=== PATIENT | female | born 1945 | race Hispanic/Latino ===

== ENCOUNTER 2019-09-08 15:41 | Observation (INO) | payer OTHER, MEDICARE ==
[~2019-09-08] VITALS: Ht 154.9 cm; Wt 78.1 kg
[2019-09-08 16:28] LABS: BASOPHILS % (AUTO) 1.4 % (0.0-5.0); EOSINOPHILS % (AUTO) 4.3 % (0.0-8.0); HEMATOCRIT 36.2 % (36-48); LYMPHOCYTES % (AUTO) 31.1 % (21.0-51.0); MEAN CORPUSCULAR HEMOGLOBIN 29.8 pg (27.0-33.0); MEAN CORPUSCULAR HGB CONC 32.9 g/dL (32.0-36.0); MEAN CORPUSCULAR VOLUME 90.7 fL (79-99); MONOCYTES % (AUTO) 8.2 % (3.0-13.0); NEUTROPHILS % (AUTO) 54.8 % (40.0-77.0); PLATELET COUNT (AUTO) 179 K/uL (130-400); RED BLOOD CELL COUNT(AUTO) 3.99 MIL/uL (4.00-5.50); RED CELL DISTRIBUTION WIDTH 12.9 % (11.0-15.5); WHITE BLOOD COUNT (AUTO) 5.8 K/uL (4.8-10.8)
[2019-09-08] MEDS ORDERED: ONDANSETRON HCL 4 MG/2 ML VIAL ONE ×2 (16:38→16:51)
[2019-09-08] MEDS ORDERED: MORPHINE SULFATE 4 MG/1ML SYG ONE ×2 (16:39→16:52)
[2019-09-08] MEDS ORDERED: ASPIRIN 325 MG TABLET ONE (16:39)
[2019-09-08 16:45] LABS: INR 1.03 (0.85-1.15); PARTIAL THROMBOPLASTIN TIME 25.2 SEC (26.3-35.5); PROTHROMBIN TIME 10.8 SEC (9.6-11.6)
[2019-09-08 16:48] LABS: CREATININE 1.1 mg/dL (0.5-1.5); POTASSIUM 3.8 mmol/L (3.5-5.1)
[2019-09-08 16:50] LABS: ALBUMIN 3.4 g/dL (3.5-5.0); BILIRUBIN,TOTAL 0.4 mg/dL (0.2-1.0); TOTAL PROTEIN, SERUM 6.9 g/dL (6.0-8.3)
[2019-09-08] MEDS ORDERED: ASPIRIN 81MG TAB.CHEW ONE (16:51)
[2019-09-08 21:08] VITALS: BP 125/65
[2019-09-09 00:16] VITALS: BP 135/62
[2019-09-09] MEDS ORDERED: DEXTROSE 50%-WATER 50 ML DISP.SYRIN IV PRN (01:00)
[2019-09-09] MEDS ORDERED: GLUCAGON 1MG KIT 1 MG ML IM PRN (01:00)
[2019-09-09] MEDS ORDERED: SODIUM CHLORIDE 0.9% 1000ML 1,000 ML IV SCH (01:00)
[2019-09-09] MEDS ORDERED: ONDANSETRON HCL 4 MG/2 ML VIAL IVP PRN (01:15)
[2019-09-09] MEDS ORDERED: MORPHINE SULFATE 2 MG/ML 1ML SYG IM PRN (01:15)
[2019-09-09] MEDS ORDERED: AMLO5TAB9 PO (01:26)
[2019-09-09] MEDS ORDERED: SIMV10TA97 PO (01:26)
[2019-09-09] MEDS ORDERED: LOSA100T58 PO (01:26)
[2019-09-09] MEDS ORDERED: ISOS20TA7 PO (01:26)
[2019-09-09] MEDS ORDERED: CITA-107 PO (01:26)
[2019-09-09] MEDS ORDERED: MEMA10TA55 PO (01:26)
[2019-09-09] MEDS ORDERED: DONE10TA43 PO (01:26)
[2019-09-09 04:16] VITALS: BP 136/78
[2019-09-09] MEDS: INSULIN HUMULIN R 100 UNIT/ML 3ML SQ SCH ×2 (06:47→11:30)
[2019-09-09] MEDS ORDERED: ASPI-555 PO (06:48)
[2019-09-09 07:30] VITALS: BP 137/71
[2019-09-09] MEDS ORDERED: AMLODIPINE BESYLATE 5 MG TAB PO SCH (09:00)
[2019-09-09] MEDS ORDERED: MEMANTINE HCL 5 MG TABLET PO SCH (09:00)
[2019-09-09] MEDS ORDERED: LOSARTAN 100 MG TABLET PO SCH (09:00)
[2019-09-09] MEDS ORDERED: ASPIRIN 325MG EC TAB 325 MG TABLET.DR PO SCH (09:00)
[2019-09-09 11:00] VITALS: BP 129/59
[2019-09-09] MEDS ORDERED: FERR325T22 PO (12:07)
[2019-09-09] MEDS ORDERED: FOLI0.4T2 PO (12:07)
[2019-09-09] MEDS ORDERED: PANT40TA25 PO (12:07)
[2019-09-09] MEDS ORDERED: LIDOCAINE HCL 2% VISCOUS 30 ML, MAG HYDROX/AL HYDROX/SIMETH 30 ML, BELLADONNA-PHENOBARB... PO SCH ×3 (12:15)
[2019-09-09] MEDS ORDERED: COMPOUND PO MISCELLANEOUS 1 EACH MISC MISC PRN (12:30)
[2019-09-09] MEDS ORDERED: LIDOCAINE HCL 2% VISCOUS 30 ML, MAG HYDROX/AL HYDROX/SIMETH 30 ML, DICYCLOMINE HCL 20 MG PO SCH ×3 (12:30)
[2019-09-09] MEDS ORDERED: DONEPEZIL HCL 5 MG TAB PO SCH (21:00)
[2019-09-09] MEDS ORDERED: CITALOPRAM 20 MG TABLET PO SCH (21:00)
[2019-09-09] MEDS ORDERED: ISOSORBIDE MONONITRATE 20 MG TABLET PO SCH (21:00)
[2019-09-09] MEDS ORDERED: ATORVASTATIN CALCIUM 40 MG TABLET PO SCH (21:00)
[2019-09-10] MEDS ORDERED: ASPIRIN 81 MG EC TAB PO SCH (09:00)
== END 2019-09-09 16:25 | disposition home or self-care (01) ==
LOC: EDH 15:41 → EDHIP 18:45 → 4DH 21:00
PROVIDERS: ADMIT Internal Medicine; ATTEND Internal Medicine
DX: R07.89 Other chest pain (principal); I12.9 Hypertensive chronic kidney disease with stage 1 through stage 4 chronic kidney disease, or unspecified chronic kidney disease; N18.9 Chronic kidney disease, unspecified; N17.9 Acute kidney failure, unspecified; R00.1 Bradycardia, unspecified; E78.5 Hyperlipidemia, unspecified; E66.9 Obesity, unspecified; K57.90 Diverticulosis of intestine, part unspecified, without perforation or abscess without bleeding; M47.9 Spondylosis, unspecified; I70.0 Atherosclerosis of aorta; F41.9 Anxiety disorder, unspecified; I20.9 Angina pectoris, unspecified; E44.1 Mild protein-calorie malnutrition; F03.90 Unspecified dementia, unspecified severity, without behavioral disturbance, psychotic disturbance, mood disturbance, and anxiety; Z90.49 Acquired absence of other specified parts of digestive tract; Z79.82 Long term (current) use of aspirin; Z79.899 Other long term (current) drug therapy; Z68.35 Body mass index [BMI] 35.0-35.9, adult
CPT/HCPCS: 36415; 71045; 80053; 82550; 82948 ×2; 84484 ×3; 85025; 85610; 85730; 93005 ×3; 99284; G0378 ×7; J2270; J2405

== ENCOUNTER 2021-12-09 21:54 | Emergency (ER) | payer OTHER, MEDICARE ==
[~2021-12-09 21:54] MED LIST: AMLO-257 PO; ASPI-556 PO; CITA-107 PO; DONE10TA43 PO; FERR325T22 PO; FOLI0.4T6 PO; ISOS20TA85 PO; LOSA100T58 PO; MEMA10TA55 PO; PANT40TA55 PO; SIMV10TA97 PO
[2021-12-09] MEDS ORDERED: CITALOPRAM (23:43)
[2021-12-09] MEDS ORDERED: BUSP5TAB3 PO (23:48)
[2021-12-09] MEDS ORDERED: ATOR10TA69 PO (23:48)
[2021-12-10 00:49] LABS: BASOPHILS % (AUTO) 0.6 % (0.0-5.0); EOSINOPHILS % (AUTO) 0.4 % (0.0-8.0); HEMATOCRIT 39.4 % (36-48); LYMPHOCYTES % (AUTO) 11.2 % (21.0-51.0); MEAN CORPUSCULAR HGB CONC 32.2 g/dL (32.0-36.0); MEAN CORPUSCULAR VOLUME 92.9 fL (79-99); MONOCYTES % (AUTO) 11.6 % (3.0-13.0); NEUTROPHILS % (AUTO) 75.9 % (40.0-77.0); PLATELET COUNT (AUTO) 156 K/uL (130-400); RED BLOOD CELL COUNT(AUTO) 4.24 MIL/uL (4.00-5.50); RED CELL DISTRIBUTION WIDTH 12.9 % (11.0-15.5)
[2021-12-10 01:00] LABS: POTASSIUM 3.2 mmol/L (3.5-5.1)
[2021-12-10 01:04] LABS: ALBUMIN 3.7 g/dL (3.5-5.0); BILIRUBIN,TOTAL 0.6 mg/dL (0.2-1.0); MAGNESIUM 1.9 mg/dL (1.80-2.40); TOTAL PROTEIN, SERUM 7.1 g/dL (6.0-8.3)
[2021-12-10 01:39] LABS: APPEARANCE,URINE CLEAR (CLEAR); BILIRUBIN,URINE SMALL (NEGATIVE); COLOR,URINE YELLOW (YELLOW); GLUCOSE, URINE (UA) NEGATIVE (NEGATIVE); KETONES,URINE 15 mg/dL (NEGATIVE); LEUKOCYTE ESTERASE ,URINE NEGATIVE (NEGATIVE); NITRATE,URINE POSITIVE (NEGATIVE); OCCULT BLOOD,URINE NEGATIVE (NEGATIVE); PROTEIN,URINE TRACE mg/dL (NEGATIVE); UROBILINOGEN,URINE 0.2 mg/dL (0.2-1.0)
[2021-12-10 01:46] LABS: BACTERIA,URINE Rare /HPF (None Seen); RBC,URINE None Seen /HPF (0-1)
[2021-12-10 01:47] LABS: MUCUS,URINE Few LPF (None Seen); SQUAMOUS EPITHELIAL CELL,UR Few /HPF (0-2)
[2021-12-10] MEDS ORDERED: NITROFURANTOIN MONOHYD/M-CRYST 100 MG CAPSULE PO ONE (02:30)
[2021-12-10] MEDS ORDERED: MACR100 PO (02:49)
[2021-12-10 02:57] VITALS: BP 132/74
== END 2021-12-10 03:01 | disposition home or self-care (01) ==
LOC: EDH 21:54
DX: N39.0 Urinary tract infection, site not specified (principal); M47.816 Spondylosis without myelopathy or radiculopathy, lumbar region; E11.9 Type 2 diabetes mellitus without complications; Z79.899 Other long term (current) drug therapy; Z79.82 Long term (current) use of aspirin
CPT/HCPCS: 36415; 72131; 80053; 81001; 82550; 83735; 84484; 85025; 87088; 93005

== ENCOUNTER 2023-03-05 08:12 | Emergency (ER) | payer OTHER, MEDICARE ==
[~2023-03-05] VITALS: Ht 160 cm; Wt 72.6 kg
[~2023-03-05 08:12] MED LIST changes: +ATOR10TA69 PO; +BUSP5TAB3 PO; +CITALOPRAM; -LOSA100T58 PO; +LOSA100T59 PO; +MACR100 PO
[2023-03-05 08:15] VITALS: BP 145/79
[2023-03-05 08:58] LABS: BASOPHILS % (AUTO) 0.6 % (0.0-5.0); EOSINOPHILS % (AUTO) 0.8 % (0.0-8.0); HEMATOCRIT 38.7 % (36-48); LYMPHOCYTES % (AUTO) 13.2 % (21.0-51.0); MEAN CORPUSCULAR HEMOGLOBIN 30.4 pg (27.0-33.0); MEAN CORPUSCULAR HGB CONC 32.8 g/dL (32.0-36.0); MEAN CORPUSCULAR VOLUME 92.6 fL (79-99); MONOCYTES % (AUTO) 7.7 % (3.0-13.0); NEUTROPHILS % (AUTO) 77.4 % (40.0-77.0); PLATELET COUNT (AUTO) 152 K/uL (130-400); RED BLOOD CELL COUNT(AUTO) 4.18 MIL/uL (4.00-5.50); RED CELL DISTRIBUTION WIDTH 13.1 % (11.0-15.5)
[2023-03-05 09:17] LABS: ALBUMIN 3.2 g/dL (3.5-5.0); CREATININE 0.9 mg/dL (0.5-1.5); POTASSIUM 3.2 mmol/L (3.5-5.1)
[2023-03-05] MEDS ORDERED: FAMOTIDINE 20MG VIAL IV ONE (09:30)
[2023-03-05] MEDS ORDERED: LACTATED RINGERS 1000ML 1,000 ML IV ONE (09:30)
[2023-03-05] MEDS ORDERED: METOCLOPRAMIDE 10 MG/2 ML VIAL IVP ONE (09:30)
[2023-03-05 10:32] LABS: APPEARANCE,URINE CLEAR (CLEAR); BILIRUBIN,URINE NEGATIVE (NEGATIVE); COLOR,URINE YELLOW (YELLOW); GLUCOSE, URINE (UA) NEGATIVE (NEGATIVE); KETONES,URINE NEGATIVE (NEGATIVE); LEUKOCYTE ESTERASE ,URINE NEGATIVE Leu/uL (NEGATIVE); NITRATE,URINE NEGATIVE (NEGATIVE); OCCULT BLOOD,URINE NEGATIVE (NEGATIVE); PROTEIN,URINE 20 mg/dL (NEGATIVE)
[2023-03-05 10:57] LABS: BACTERIA,URINE FEW /HPF (None Seen); MUCUS,URINE MANY LPF (None Seen); RBC,URINE 0-1 /HPF (0-1); SQUAMOUS EPITHELIAL CELL,UR RARE /HPF (0-2)
[2023-03-05] MEDS ORDERED: POTASSIUM BICARB/CIT AC 25 MEQ TABLET.EFF PO ONE (12:30)
== END 2023-03-05 12:42 | disposition home or self-care (01) ==
LOC: EDH 08:12
DX: E87.6 Hypokalemia (principal); I10 Essential (primary) hypertension; E78.00 Pure hypercholesterolemia, unspecified; Z79.82 Long term (current) use of aspirin; Z79.899 Other long term (current) drug therapy; F03.90 Unspecified dementia, unspecified severity, without behavioral disturbance, psychotic disturbance, mood disturbance, and anxiety
CPT/HCPCS: 99284; 96374; 96361; 71045; 96375; 80053; 83690; 85025; 81001; 36415; 74021; J7120; J3490; J2765; 74018